=== PATIENT | female | born 1965 | race Caucasian/White ===

== ENCOUNTER 2021-01-18 17:15 | Emergency (ER) | payer OTHER ==
[~2021-01-18] VITALS: Ht 162.6 cm; Wt 70.8 kg
[2021-01-18 17:34] VITALS: BP 134/95
[2021-01-18 18:20] LABS: BASOPHILS # (AUTO) 0.3 K/uL (0.00-0.22); BASOPHILS % (AUTO) 3.5 % (0.0-2.0); EOSINOPHILS # (AUTO) 0.1 K/uL (0-0.4); EOSINOPHILS % (AUTO) 1.5 % (0.0-4.0); HEMATOCRIT 43.9 % (36-48); HEMOGLOBIN 14.8 g/dL (12.0-16.0); LYMPHOCYTES # (AUTO) 1.2 K/uL (2.5-16.5); LYMPHOCYTES % (AUTO) 16.5 % (20.5-51.1); MEAN CORPUSCULAR HEMOGLOBIN 30 pg (27-31); MEAN CORPUSCULAR HGB CONC 34 g/dL (33-37); MEAN CORPUSCULAR VOLUME 89.2 fL (80-94); MONOCYTES # (AUTO) 0.4 K/uL (0.8-1.0); MONOCYTES % (AUTO) 5.6 % (1.7-9.3); NEUTROPHILS # (AUTO) 5.3 K/uL (1.8-7.7); NEUTROPHILS % (AUTO) 72.9 % (42.2-75.2); PLATELET COUNT (AUTO) 261 K/uL (140-450); RED BLOOD CELL COUNT(AUTO) 4.91 MIL/uL (4.20-5.40); RED CELL DISTRIBUTION WIDTH 13.2 % (11.6-13.7); WHITE BLOOD COUNT (AUTO) 7.2 K/uL (4.8-10.8)
[2021-01-18 18:39] LABS: ALBUMIN 4.1 g/dL (3.4-5.0); ANION GAP 9.6 (8-16); CARBON DIOXIDE 30.9 mmol/L (21-32); CREATININE 0.7 mg/dL (0.6-1.3); FREE T4 (FREE THYROXINE) 0.83 ng/dL (0.76-1.46); POTASSIUM 3.5 mmol/L (3.5-5.1); THYROID STIMULATING HORMONE 1.94 uIU/mL (0.34-3.74); TOTAL BILIRUBIN 0.4 mg/dL (0.0-1.0)
--- NOTE | 2021-01-18 20:37 | NUR ---
Patient moved to chair C
--- NOTE | 2021-01-18 20:39 | NUR ---
Seen by ERMD no nursing intervention needed on patient.
--- NOTE | 2021-01-18 20:40 | NUR ---
ANGELIQUE Burgess speaking with patient about results. All questions answered.
[2021-01-18 20:44] VITALS: BP 109/73
--- NOTE | 2021-01-18 20:44 | NUR ---
Patient discharged with v/s stable. Written and verbal after care instructions given and explained. Patient verbalized understanding. Ambulatory with steady gait. ID band removed. All questions addressed prior to discharge. Advised to follow up with PMD.
== END 2021-01-18 20:44 | disposition home or self-care (01) ==
LOC: MED 17:15
DX: R00.2 Palpitations (principal); Z88.0 Allergy status to penicillin
CPT/HCPCS: 36415; 71045; 80053; 84439; 84443; 84484; 85025; 93005; 99285

== ENCOUNTER 2022-05-07 07:07 | Emergency (ER) | payer OTHER ==
[~2022-05-07] VITALS: Ht 160 cm; Wt 69.6 kg
[2022-05-07 07:14] VITALS: BP 128/83
--- NOTE | 2022-05-07 07:20 | NUR ---
BIB SELF C/O COUGH, 7/10 MID CHEST PAIN, SOB, CONGESTION, RUNNY NOSE X 10 DAYS. TAKING LEVOFLOXACIN. O2SAT 96% AT THIS TIME. PMH: ASTHMA
--- NOTE | 2022-05-07 07:22 | NUR ---
PT AMB TO BED 7
--- NOTE | 2022-05-07 07:32 | NUR ---
Dr. Alcantar evaluating patient at bedside.
[2022-05-07] MEDS ORDERED: ALBUTEROL 0.083% 2.5 MG/3 ML NEBU INH ONE (07:40)
[2022-05-07] MEDS ORDERED: predniSONE 20 MG TAB PO ONE (07:40)
--- NOTE | 2022-05-07 07:48 | NUR ---
RT AT BEDSIDE FOR BREATHING TREATMENT.
[2022-05-07] MEDS ORDERED: ALBU0.0912 IH (07:57)
[2022-05-07] MEDS ORDERED: PRED20TA5 PO (07:57)
[2022-05-07] MEDS ORDERED: PRON INH (07:57)
--- NOTE | 2022-05-07 08:08 | NUR ---
DR. WALLACE RE-EVALUATING PATIENT AT BEDSIDE.
--- NOTE | 2022-05-07 08:18 | NUR ---
Patient discharged with v/s stable. Written and verbal after care instructions given and explained. Patient alert, oriented and verbalized understanding of instructions. Ambulatory with steady gait. All questions addressed prior to discharge. ID band removed. Patient advised to follow up with PMD. Rx of prednisone, albuterol hfa, albuterol neb (sent) given. Patient educated on indication of medication including possible reaction and side effects. Opportunity to ask questions provided and answered. work note given
--- NOTE | 2022-05-07 08:18 | NUR ---
pt states relief with tx at this time, denies any worsening cp
[2022-05-07 08:20] VITALS: BP 115/84
== END 2022-05-07 08:20 | disposition home or self-care (01) ==
LOC: MED 07:07
DX: J45.901 Unspecified asthma with (acute) exacerbation (principal); R06.02 Shortness of breath; R07.9 Chest pain, unspecified; Z88.0 Allergy status to penicillin; Z79.899 Other long term (current) drug therapy
CPT/HCPCS: 94640; 94760; 99283; J7512; J7613

== ENCOUNTER 2023-06-16 04:37 | Emergency (ER) | payer OTHER ==
[~2023-06-16] VITALS: Ht 160 cm; Wt 63.5 kg
[~2023-06-16 04:37] MED LIST: ALBU0.0912 IH; PRED20TA5 PO; PRON INH
[2023-06-16 04:50] VITALS: BP 140/81; PULSE 103; RESP 20; TEMP 97.5; O2SAT 96
== END 2023-06-16 07:15 | disposition home or self-care (01) ==
LOC: MED 04:37
DX: J20.9 Acute bronchitis, unspecified (principal); J45.901 Unspecified asthma with (acute) exacerbation; Z79.899 Other long term (current) drug therapy
CPT/HCPCS: 71045; 99283